=== PATIENT | male | born 1985 | race Caucasian/White ===

== ENCOUNTER 2017-03-22 10:55 | Emergency (ER) | payer MEDICAID ==
[~2017-03-22] VITALS: Ht 182.9 cm; Wt 90.3 kg
[~2017-03-22 10:55] MED LIST: HYDR-3240 PO
[2017-03-22] MEDS ORDERED: ONDANSETRON 2MG/ML, 2ML IVPush ONE (11:30)
[2017-03-22] MEDS ORDERED: SODIUM CHLORIDE FLUSH 10ML SYR IVF ONE (11:30)
[2017-03-22] MEDS ORDERED: MAALOX/HYOSCYAMINE/LIDOCAINE 45 ML BOTTLE PO ONE (11:30)
[2017-03-22] MEDS ORDERED: SODIUM CHLORIDE 0.9% 1,000ML IVBOLUS ONE (11:30)
[2017-03-22] MEDS ORDERED: FAMOTIDINE 20 MG/2 ML IVP ONE (11:30)
[2017-03-22] MEDS ORDERED: MAALOX/HYOSCYAMINE/LIDOCAINE 45 ML BOTTLE ONE (11:47)
[2017-03-22] MEDS ORDERED: MORPHINE SULFATE 4 MG/ML, 1ML ONE ×2 (11:47→12:49)
[2017-03-22] MEDS ORDERED: ONDANSETRON 2MG/ML, 2ML ONE (11:47)
[2017-03-22] MEDS ORDERED: FAMOTIDINE 20 MG/2 ML ONE (11:48)
[2017-03-22] MEDS: MORPHINE SULFATE 4 MG/ML, 1ML IVPush PRN ×2 (11:51→12:50)
[2017-03-22 12:28] LABS: ASPARTATE AMINO TRANSFERASE 14 U/L (15-37); BLOOD UREA NITROGEN 17 mg/dL (7-18)
[2017-03-22 12:47] VITALS: BP 119/73
== END 2017-03-22 13:30 | disposition home or self-care (01) ==
LOC: ED 11:36
DX: A08.4 Viral intestinal infection, unspecified (principal); R10.84 Generalized abdominal pain; F17.210 Nicotine dependence, cigarettes, uncomplicated
CPT/HCPCS: 36415; 80053; 83690; 85025; 96361; 96374; 96375; 96376; 99285; J2405; J7030; S0028

== ENCOUNTER 2017-05-08 15:53 | Emergency (ER) | payer MEDICAID ==
[~2017-05-08] VITALS: Ht 182.9 cm; Wt 85.0 kg
[2017-05-08 16:07] VITALS: BP 122/79
== END 2017-05-08 16:37 | disposition home or self-care (01) ==
LOC: ED 16:31
DX: K08.89 Other specified disorders of teeth and supporting structures (principal); F17.210 Nicotine dependence, cigarettes, uncomplicated; F15.10 Other stimulant abuse, uncomplicated
CPT/HCPCS: 99283

== ENCOUNTER 2017-06-26 14:45 | Emergency (ER) | payer MEDICAID ==
[~2017-06-26] VITALS: Ht 182.9 cm; Wt 86.4 kg
[2017-06-26 14:47] VITALS: BP 151/78
[2017-06-26] MEDS ORDERED: HYDROcodone/APAP 5/325 TABLET PO ONE (15:00)
[2017-06-26] MEDS ORDERED: HYDROcodone/APAP 5/325 TABLET ONE (15:07)
== END 2017-06-26 15:39 | disposition home or self-care (01) ==
LOC: ED 15:32
DX: K08.89 Other specified disorders of teeth and supporting structures (principal)
CPT/HCPCS: 99283

== ENCOUNTER 2017-07-18 16:13 | Emergency (ER) | payer MEDICAID ==
[~2017-07-18] VITALS: Ht 182.9 cm; Wt 82.5 kg
[2017-07-18 16:17] VITALS: BP 127/77
[2017-07-18] MEDS ORDERED: SODIUM CHLORIDE FLUSH 10ML SYR IVF ONE (16:30)
[2017-07-18] MEDS ORDERED: FAMOTIDINE 20 MG/2 ML IVP ONE (16:30)
[2017-07-18] MEDS ORDERED: ONDANSETRON 2MG/ML, 2ML IVPush ONE (16:30)
[2017-07-18] MEDS ORDERED: SODIUM CHLORIDE 0.9% 1,000ML IVBOLUS ONE ×2 (16:30→17:30)
[2017-07-18] MEDS ORDERED: ONDANSETRON 2MG/ML, 2ML ONE (16:58)
[2017-07-18] MEDS ORDERED: FAMOTIDINE 20 MG/2 ML ONE (16:58)
[2017-07-18] MEDS ORDERED: CHOL100012 PO (17:01)
[2017-07-18 17:05] LABS: HEMATOCRIT 49.4 % (39.2-51.8); HEMOGLOBIN 16.9 g/dL (13.7-18.0); WHITE BLOOD COUNT 12.3 x10^3/uL (3.4-10)
[2017-07-18 17:15] LABS: ASPARTATE AMINO TRANSFERASE 14 U/L (15-37); BLOOD UREA NITROGEN 28 mg/dL (7-18)
== END 2017-07-18 18:16 | disposition home or self-care (01) ==
LOC: ED 16:46
DX: K52.9 Noninfective gastroenteritis and colitis, unspecified (principal)
CPT/HCPCS: 36415; 80053; 81003; 83690; 85025; 96361; 96374; 96375; 99284; J2405; J7030; S0028